=== PATIENT | male | born 1950 | race Caucasian/White ===

== ENCOUNTER → 2021-02-11 12:39 | Outpatient (CLI) | payer MEDICARE, SELFPAY ==
--- NOTE | 2021-02-11 12:43 | DI.RAD.S_ITS ---
PROCEDURE: XR ELBOW RT MIN 3V INDICATIONS: elbow pain TECHNIQUE: 3 views of the elbow were acquired. COMPARISON: [facility], CR, XR FOREARM RT 2V, 02/11/2021, 12:43. FINDINGS: Bones: Chronic changes are seen of the radius, with cortical thickening and bony irregularity. Distal postoperative changes are partially seen. Soft tissues: There is a small elbow joint effusion. No suspicious soft tissue calcifications. IMPRESSION: Small joint effusion. Abnormal radius, with bony thickening and bony overgrowth. Paget's disease is possible. Please correlate with patient history. Dictated by: Jacobo Castillo M.D. on 02/11/2021 at 13:13 Approved by: Jacobo Castillo M.D. on 02/11/2021 at 13:15
--- NOTE | 2021-02-11 12:43 | DI.RAD.S_ITS ---
PROCEDURE: XR FOREARM RT 2V INDICATIONS: elbow pain TECHNIQUE: 2 views of the forearm were acquired. COMPARISON: [facility], CR, XR ELBOW RT MIN 3V, 02/11/2021, 12:43. FINDINGS: Bones: Cortical thickening and bony irregularity is seen of the radius, with bowing of the radius itself. Distal postoperative changes are seen of the radius and ulna. Degenerative changes are seen of the carpus. Soft tissues: No suspicious soft tissue calcifications or masses. IMPRESSION: Abnormal radius, with cortical thickening and bony overgrowth. Paget's disease is possible, although please correlate with known patient history. Distal postoperative changes are seen of the radius and ulna. Dictated by: Jacobo Castillo M.D. on 02/11/2021 at 13:15 Approved by: Jacobo Castillo M.D. on 02/11/2021 at 13:16
== END ==
PROVIDERS: Referring Provider Physician Assistant; Visit Provider Physician Assistant
DX: M25.521 Pain in right elbow (principal); M25.421 Effusion, right elbow
CPT/HCPCS: 73080; 73090